=== PATIENT | female | born 2005 | race Two or more races ===

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

== ENCOUNTER 2025-03-29 13:53 | Emergency (ER) | payer BC ==
[~2025-03-29] VITALS: Ht 154.9 cm; Wt 45.4 kg
[~2025-03-29 13:53] MED LIST: CEPH-509 PO
--- NOTE | 2025-03-29 14:07 | ED.PDOC ---
Altered Mental Status HPI Comments 20 y.o female with PMHx of anxiety, presents to the ED via EMS for an evaluation of altered mental status. EMS reports patient has been verbally arguing with boyfriend for the past 2 days, per boyfriend on scene, she has not been eating and had a syncopal episode today. Patient presents to the ED answering questions with head movement but no verbal answers. Patient is a poor historian, is able to follow commands but presents with eyes closed at all times. She denies any other medical history. Chief Complaint: ALOC Time Seen by MD: 14:00 Reviewed Notes: Nurses Notes, Test Lead Notes, Medications, Allergies Allergies: Coded Allergies: NO KNOWN ALLERGIES (Unverified , 01/09/22) Home Meds Active Scripts Cephalexin (KEFLEX 500) 500 Mg Cap, 1 CAP PO BID for 7 Days, #14 CAP Prov:VIDHYA ESCOBAR MD 01/10/22 Information Source: Patient, Emergency Med Personnel Mode of Arrival: EMS Severity: Moderate Timing: Hours Duration: Since onset Quality: Decreased Alertness, Not Eating Recent: None History of: None Associated Signs and Symptoms: Other Past Medical History PAST MEDICAL HISTORY: Anxiety Surgical History: Denies all surgeries [employer] OFFICER History: No Pertinent [employer]ER History Social History Smoker: Non-Smoker Alcohol: Denies ETOH Use Drugs: Denies Drug Use Lives In: Home Constitutional: denies: chills, diaphoresis, fatigue, fever, malaise, sweats, weakness, others EENTM: denies: blurred vision, double vision, ear bleeding, ear discharge, ear drainage, ear pain, ear ringing, eye pain, eye redness, hearing loss, mouth pain, mouth swelling, nasal discharge, nose bleeding, nose congestion, nose pain, photophobia, tearing, throat pain, throat swelling, voice changes, others Respiratory: denies: cough, hemoptysis, orthopnea, SOB at rest, shortness of breath, SOB with excertion, stridor, wheezing, others Cardiovascular: reports: syncope; denies: chest pain, dizzy spells, diaphoresi s, Dyspnea on exertion, edema, irregular heart beat, left arm pain, lightheadedness, palpitations, PND, others Gastrointestinal: denies: abdomen distended, abdominal pain, blood streaked bowels, constipated, diarrhea, dysphagia, difficulty swallowing, hematemesis, melena, nausea, poor appetite, poor fluid intake, rectal bleeding, rectal pain, vomiting, others Genitourinary: denies: abnormal vagina bleeding, burning, dyspareunia, dysuria, flank pain, frequency, hematuria, incontinence, pain, , vagina discharge, urgency, others Neurological: denies: dizziness, fainting, headache, left sided numbness, left sided weakness, numbness, paresthesia, pre-existing deficit, right sided numbness, right sided weakness, seizure, speech problems, tingling, tremors, weakness, others Musculoskeletal: denies: back pain, gout, joint pain, joint swelling, muscle pain, muscle stiffness, neck pain, others Integumetry: denies: bruises, change in color, change in hair/nails, dryness, laceration, lesions, lumps, rash, wounds, others Allergic/Immunocompromised: denies: Difficulty Healing, Frequent Infections, Hives, Itching, others Hematologic/Lymphatic: denies: anemia, blood clots, easy bleeding, easy bruising, swollen glands, others Endocrine: denies: excessive hunger, excessive sweating, excessive thirst, excessive urination, flushing, intolerance to cold, intolerance to heat, unexplained weight gain, unexplained weight loss, others Psychiatric: denies: anxiety, bipolar disorder, depression, hopeless, panic disorder, schizophrenia, sleepless, suicidal, others All Other Systems: Reviewed and Negative Physical Exam General Appearance: Mild Distress HEENT: Normal ENT Inspection, Pharynx Normal, TMs Normal Neck: Full Range of Motion, Non-Tender, Normal, Normal Inspection Respiratory: Chest Non-Tender, Lungs Clear, No Accessory Muscle Use, No R espiratory Distress, Normal Breath Sounds Cardiovascular: No Edema, No JVD, No Murmur, No Gallop, Normal Peripheral Pulses, Regular Rate/Rhythm Breast Exam: Deferred Gastrointestinal: No Organomegaly, Non Tender, No Pulsatile Mass, Normal Bowel Sounds, Soft Genitalia: Deferred Pelvic: Deferred Rectal: Deferred Extremities: No calf tenderness, Normal capillary refill, Normal inspection, Normal range of motion, Non-tender, No pedal edema Musculoskeletal : Apperance: Normal Neurologic: implementation manager II-XII nml as Tested, Motor Weakness, No Sensory Deficits, Other (The patient was experiencing some anxiety and was not answering questions initially upon arrival) Cerebellar Function: Normal Reflexes: Normal Skin: Dry, Normal Color, Warm Lymphatic: No Adenopathy Was a procedure done? Was a procedure done?: No Differential Diagnosis (ALOC) Differential Diagnosis: Dehydration, Hypoxemia, Closed Head Injury, Drug Overdose, ETOH Intoxication X-Ray, Labs, Meds, VS Vital Signs Date Time Temp Pulse Resp B/P (MAP) Pulse Ox O2 Delivery O2 Flow Rate FiO2 03/29/25 15:24 Room Air* 0 21 03/29/25 15:24 98.1 56 18 128/77 (94) 97 98.1 03/29/25 13:58 97.5 96 18 122/76 (91) 98 97.5 Lab Test 03/29/25 15:30 03/29/25 14:45 Range/Units POC Glucose 73 70-106 mg/dl White Blood Count 5.7 4.4-10.8 10^3/uL Red Blood Count 3.96 L 4.0-5.20 10^6/uL Hemoglobin 11.1 L 12.2-16.2 g/dL Hematocrit 33.2 L 36.0-46.0 % Mean Corpuscular Volume 83.9 80.0-100.0 fL Mean Corpuscular Hemoglobin 28.1 28.0-32.0 pg Mean Corpuscular Hemoglobin Concent 33.4 32.0-36.0 g/dL Red Cell Distribution Width 13.8 11.8-14.3 % Platelet Count 177 140-450 10^3/uL Mean Platelet Volume 10.1 6.9-10.8 fL Neutrophils (%) (Auto) 69.4 37.0-80.0 % Lymphocytes (%) (Auto) 20.0 10.0-50.0 % Monocytes (%) (Auto) 8.1 0.0-12.0 % Eosinophils (%) (Auto) 1.6 0.0-7.0 % Basophils (%) (Auto) 0.9 0.0-2.0 % Neutrophils # (Auto) 4.0 1.6-8.6 10 ^3/uL Lymphocytes # (Auto) 1.1 0.4-5.4 10 ^3/uL Monocytes # (Auto) 0.5 0-1.3 10 ^3/uL Eosinophils # (Auto) 0.1 0-0.8 10 ^3/uL Basophils # (Auto) 0.1 0-0.2 10 ^3/uL Nucleated Red Blood Cells 0.1 % Sodium Level 142 136-145 mmol/L Potassium Level 3.4 L 3.5-5.1 mmol/L Chloride Level 109 H 98-107 mmol/L Carbon Dioxide Level 24 20-31 mmol/L Anion Gap 9 5-15 Blood Urea Nitrogen 15 9-23 mg/dL Creatinine 0.50 L 0.550-1.02 mg/dL Glomerular Filtration Rate Calc 136 >90 mL/min BUN/Creatinine Ratio 30.0 H 10.0-20.0 Serum Glucose 84 74-106 mg/dL Calcium Level 10.0 8.7-10.4 mg/dL Plasma/Serum Blood Alcohol < 3.0 <10 mg/dL Current Medications Medications (Trade) Dose Ordered Sig/Arnoldo Route Start Time Stop Time Status Last Admin Sodium Chloride 1,000 ml @ 1,000 mls/hr Q1H ONCE IVB 03/29/25 14:15 03/29/25 15:14 DC 03/29/25 15:30 IV Hep-Lock was established The patient was given normal saline The CBC and chemistry panel are within normal limits. The patient is baseline is now normal The patient is able to answer all questions appropriately The patient is being discharged with her family with a diagnosis of anxiety The patient understands and agrees with the management. Images Reviewed?: Images reviewed and evaluated by me Time of 1ST Reevaluation: 14:05 Reevaluation 1ST: Unchanged Patient Education/Counseling: Diagnosis, Treatment, Prognosis, Need For Follow Up Family Education/Counseling: No Family Present SEPSIS Sepsis Screen Physician Orders Urinalysis (03/29/25 14:02) Drug Screen (03/29/25 14:02) Technical Marketing Engineer (03/29/25 14:02) Pulse Oximetry (03/29/25 14:02) Blood Pressure (03/29/25 14:02) Heplock Iv (03/29/25 14:02) Vital Signs Date Time Temp Pulse Resp B/P (MAP) Pulse Ox O2 Delivery O2 Flow Rate FiO2 03/29/25 15:24 Room Air* 0 21 03/29/25 15:24 98.1 56 18 128/77 (94) 97 98.1 03/29/25 13:58 97.5 96 18 122/76 (91) 98 97.5 Laboratory Tests Test 03/29/25 14:45 White Blood Count 5.7 10^3/uL (4.4-10.8) Medications Medications Dose Ordered Sig/Arnoldo Route Start Time Stop Time Status Last Admin Dose Admin Sodium Chloride 1,000 ml @ 1,000 mls/hr Q1H ONCE IVB 03/29/25 14:15 03/29/25 15:14 DC 03/29/25 15:30 Departure 1 Departure Time of Disposition: 17:45 Impression: Primary Impression: Acute anxiety Disposition: 01 HOME / SELF CARE / HOMELESS Condition: Fair Discharged With: Self Critical Care Note Critical Care Time?: No Stability Stability form required: No I personally scribed for BRITT JEAN MD ([email or web address]) on 03/29/25 at 14:07. Electronically submitted by Janelle Deleon ([facility]). BRITT JEAN MD Mar 29, 2025 14:07
[2025-03-29 15:04] LABS: Hematocrit 33.2 % (36.0-46.0); Hemoglobin 11.1 g/dL (12.2-16.2); Mean Corpuscular Hemoglobin 28.1 pg (28.0-32.0); Mean Corpuscular Volume 83.9 fL (80.0-100.0); Nucleated Red Blood Cells % 0.1 %
[2025-03-29 15:09] LABS: Sodium 142 mmol/L (136-145)
[2025-03-29 15:10] LABS: Anion Gap 9 (5-15); Calcium 10.0 mg/dL (8.7-10.4); Carbon Dioxide 24 mmol/L (20-31); Chloride 109 mmol/L (98-107); Potassium 3.4 mmol/L (3.5-5.1)
[2025-03-29 15:15] LABS: BUN/Creatinine Ratio 30.0 (10.0-20.0); Blood Urea Nitrogen 15 mg/dL (9-23); Glucose 84 mg/dL (74-106)
[2025-03-29 15:24] VITALS: BP 128/77; PULSE 56; RESP 18; TEMP 98.1; O2SAT 97
[2025-03-29] MEDS: SODIUM CHLORIDE 0.9% 1,000 ML IVB ONE (15:30)
== END 2025-03-29 17:56 | disposition home or self-care (01) ==
LOC: EDBD 13:53 → ER 13:53
DX: F41.9 Anxiety disorder, unspecified (principal); Z79.899 Other long term (current) drug therapy
CPT/HCPCS: 36415; 80048; 80320; 82947; 85025; 96360; 99283; J7030; 82962